=== PATIENT | female | born 1950 | race Caucasian/White ===

== ENCOUNTER 2019-05-09 08:06 | Emergency (ER) | payer MEDICARE ==
[~2019-05-09] VITALS: Ht 160 cm; Wt 113.0 kg
--- NOTE | 2019-05-09 08:53 | PHYS DOC ---
Past Medical History Past Medical History: Asthma, COPD, High Cholesterol, Hypertension Past Surgical History: Appendectomy, Cholecystectomy, Tubal ligation Alcohol Use: Rarely Drug Use: None Adult General Chief Complaint Chief Complaint: FLANK PAIN HPI HPI Patient is a 68 year old female who presents to the emergency Department today with complaints of right flank pain for the last 2 days. In addition, patient complains of nausea, vomiting, and diarrhea with the pain. Patient states that earlier today she had 4 episodes of diarrhea, she denies any blood in her stools. Patient also denies any fever, shortness of breath, cough, dysuria, increased urinary frequency, hematuria, or recent constipation. She currently rates the pain a 10 out of 10 on the pain scale, there are no alleviating or exacerbating factors. Patient denies any chest pain, palpitations, syncope, or diaphoresis. She states that last week she was seen by her chiropractor several times for right low back pain, but reports that this pain is different than that pain she was experiencing. Review of Systems Review of Systems Constitutional: Denies fever or chills [] Eyes: Denies change in visual acuity, redness, or eye pain [] HENT: Denies nasal congestion or sore throat [] Respiratory: Denies cough or shortness of breath [] Cardiovascular: No additional information not addressed in HPI [] GI: see history of present illness : Denies dysuria or hematuria [] Musculoskeletal: see history of present illness Integument: Denies rash or skin lesions [] Neurologic: Denies headache, focal weakness or sensory changes [] Endocrine: Denies polyuria or polydipsia [] Complete systems were reviewed and found to be within normal limits, except as documented in this note. Current Medications Current Medications Current Medications Medications (Trade) Dose Ordered Sig/[facility] Start Time Stop Time Status Last Admin Dose Admin Fentanyl Citrate (Fentanyl 2ml Vial) 50 mcg 1X ONCE 05/09/19 09:00 05/09/19 09:01 DC 05/09/19 09:01 50 MCG Info (CONTRAST GIVEN -- Rx MONITORING) 1 each PRN DAILY PRN 05/09/19 10:30 05/09/19 14:02 DC Iohexol (Omnipaque 300 Mg/ml) 60 ml 1X ONCE 05/09/19 10:30 05/09/19 10:31 DC 05/09/19 11:10 60 ML Morphine Sulfate (Morphine Sulfate) 4 mg 1X ONCE 05/09/19 10:30 05/09/19 10:31 DC 05/09/19 10:31 4 MG Ondansetron HCl (Zofran) 4 mg 1X ONCE 05/09/19 14:00 05/09/19 14:01 DC 05/09/19 13:35 4 MG Orphenadrine Citrate (Norflex) 60 mg 1X ONCE 05/09/19 12:30 05/09/19 12:31 DC 05/09/19 12:28 60 MG Sodium Chloride 1,000 ml @ 1,000 mls/hr 1X ONCE 05/09/19 09:00 05/09/19 09:59 DC 05/09/19 09:00 1,000 MLS/HR Allergies Allergies Allergies Coded Allergies Type Severity Reaction Last Updated Verified No Known Drug Allergies 05/09/19 No Physical Exam Physical Exam Constitutional: Well developed, well nourished, no acute distress, non-toxic appearance obese. [] HENT: Normocephalic, atraumatic, bilateral external ears normal, nose normal. [] Eyes: onjunctiva normal, no discharge. [] Neck: Normal range of motion, no stridor. [] Cardiovascular:Heart rate tachycardic rhythm, no murmur [] Lungs & Thorax: Bilateral breath sounds clear to auscultation [] Abdomen: Bowel sounds normal, soft, suprapubic tenderness, no guarding, no rebound tenderness, no masses, no pulsatile masses. [] Skin: Warm, dry, no erythema, no rash. [] Back: No CVA tenderness; right lumbar paraspinal tenderness to palpation[] Extremities: No cyanosis, ROM intact, Neurologic: Alert and oriented X 3, no focal deficits noted. [] Psychologic: Affect normal, judgement normal, mood normal. [] Current Patient Data Vital Signs Vital Signs Date Time Temp Pulse Resp B/P (MAP) Pulse Ox O2 Delivery O2 Flow Rate FiO2 05/09/19 13:45 84 185/70 (108) 97 Room Air 05/09/19 11:01 17 2.0 05/09/19 08:06 97.8 97.8 Lab Values Laboratory Tests Test 05/09/19 08:36 05/09/19 10:07 White Blood Count 11.1 x10^3/uL (4.0-11.0) H Red Blood Count 4.60 x10^6/uL (3.50-5.40) Hemoglobin 14.1 g/dL (12.0-15.5) Hematocrit 41.8 % (36.0-47.0) Mean Corpuscular Volume 91 fL (79-100) Mean Corpuscular Hemoglobin 31 pg (25-35) Mean Corpuscular Hemoglobin Concent 34 g/dL (31-37) Red Cell Distribution Width 13.7 % (11.5-14.5) Platelet Count 320 x10^3/uL (140-400) Neutrophils (%) (Auto) 79 % (31-73) H Lymphocytes (%) (Auto) 15 % (24-48) L Monocytes (%) (Auto) 5 % (0-9) Eosinophils (%) (Auto) 1 % (0-3) Basophils (%) (Auto) 2 % (0-3) Neutrophils # (Auto) 8.7 x10^3/uL (1.8-7.7) H Lymphocytes # (Auto) 1.6 x10^3/uL (1.0-4.8) Monocytes # (Auto) 0.5 x10^3/uL (0.0-1.1) Eosinophils # (Auto) 0.1 x10^3/uL (0.0-0.7) Basophils # (Auto) 0.2 x10^3/uL (0.0-0.2) Sodium Level 138 mmol/L (136-145) Potassium Level 4.1 mmol/L (3.5-5.1) Chloride Level 99 mmol/L (98-107) Carbon Dioxide Level 26 mmol/L (21-32) Anion Gap 13 (6-14) Blood Urea Nitrogen 13 mg/dL (7-20) Creatinine 1.1 mg/dL (0.6-1.0) H Estimated GFR (Cockcroft-Gault) 49.5 BUN/Creatinine Ratio 12 (6-20) Glucose Level 137 mg/dL (70-99) H Calcium Level 9.4 mg/dL (8.5-10.1) Magnesium Level 1.4 mg/dL (1.8-2.4) L Total Bilirubin 0.9 mg/dL (0.2-1.0) Aspartate Amino Transferase (AST) 19 U/L (15-37) Alanine Aminotransferase (ALT) 14 U/L (14-59) Alkaline Phosphatase 63 U/L (46-116) Total Protein 8.4 g/dL (6.4-8.2) H Albumin 3.6 g/dL (3.4-5.0) Albumin/Globulin Ratio 0.8 (1.0-1.7) L Urine Collection Type Unknown Urine Color Yellow Urine Clarity Hazy Urine pH 5.5 Urine Specific Emily 1.020 Urine Protein Trace mg/dL (NEG-TRACE) Urine Glucose (UA) Negative mg/dL (NEG) Urine Ketones (Stick) Negative mg/dL (NEG) Urine Blood Trace (NEG) Urine Nitrite Negative (NEG) Urine Bilirubin Negative (NEG) Urine Urobilinogen Dipstick 0.2 mg/dL (0.2 mg/dL) Urine Leukocyte Esterase Moderate (NEG) Urine RBC 1-2 /HPF (0-2) Urine WBC 1-4 /HPF (0-4) Urine Bacteria 0 /HPF (0-FEW) Laboratory Tests 05/09/19 08:36 Laboratory Tests 05/09/19 08:36 EKG EKG 0852- sinus rhythm rate of 96, no abnormalities, no STEMI read by Dr. Johnson[] Radiology/Procedures Radiology/Procedures PROCEDURE: CT ABD PELV W/ IV CONTRST ONLY PQRS Compliance Statement: One or more of the following individualized dose reduction techniques were utilized for this examination: 1. Automated exposure control 2. Adjustment of the mA and/or kV according to patient size 3. Use of iterative reconstruction technique CT abdomen/pelvis with contrast 05/09/2019 10:08 AM INDICATION: Abdominal pain with nausea, vomiting and diarrhea COMPARISON: CT abdomen/pelvis October 21, 2011 TECHNIQUE: Multiple axial CT images of the abdomen and pelvis were obtained after the intravenous administration of 60 mL Omnipaque 300. Coronal and sagittal reformats are provided. FINDINGS: Lung bases are clear. Heart size is within normal limits. Mild hypoattenuation of the hepatic parenchyma suggestive of hepatic steatosis. Spleen, bilateral adrenal glands, and pancreas are normal in appearance. Gallbladder is surgically absent. No intrahepatic or extrahepatic biliary ductal dilatation. Abdominal aorta is normal in course and caliber. There are no pathologically enlarged lymph nodes in abdomen and pelvis. There is no free fluid or free intraperitoneal air. There is an umbilical hernia containing nondilated loop of small bowel in measuring approximately 3.4 cm. There is mild colonic diverticulosis. Under distention of the colon and lack of oral contrast limits evaluation. Appendix is not definitively visualized and may be surgically absent. Small and large bowel loops are normal in caliber. No evidence for bowel obstruction or inflammation. The kidneys enhance symmetrically. There is no suspicious renal mass. There is no hydronephrosis. There are no suspected calculi within the kidneys, ureters or urinary bladder. Urinary bladder is within normal limits given degree of distention. Uterus and adnexa appear normal by CT. No suspicious osseous abnormality is identified. IMPRESSION: 1. No evidence for bowel obstruction or inflammation. 2. Umbilical hernia containing nondilated loops of small bowel. 3. Mild colonic diverticulosis. 4. Mild hepatic steatosis. [] Course & Med Decision Making Course & Med Decision Making Pertinent Labs and Imaging studies reviewed. (See chart for details) dx: R low back pain, lower abdominal pain, nausea, UTI ddx: kidney stone, pyelonephritis, diverticulitis, colitis, bowel obstruction WBC 11.1, CBC otherwise unremarkable, CMP [employer] 1.1 glucose 137, mg 1.4, UA moderate leuk kya, 1-[address] ABD/Pel: 1. No evidence for bowel obstruction or inflammation. 2. Umbilical hernia containing nondilated loops of small bowel. 3. Mild colonic diverticulosis. 4. Mild hepatic steatosis. Pt given 2 doses of 4 mg of zofran, 1L NS, 50 mcg of fentanyl, 4 mg of morphine, and 60 mg of norflex IV. PT reports some pain relief but states that pain is not gone. Advised pt that there is no acute findings today and offered to admit for pain control. Pt states she would like to go home. Prescriptions written for norflex, keflex, and zofran. Follow up with PCP if sx persist, return to ER if sx worsen Patient verbalized an understanding of home care, medications, follow-up, and return to ED instructions and was in agreement with the plan of care. [] Dragon Disclaimer Dragon Disclaimer This electronic medical record was generated, in whole or in part, using a voice recognition dictation system. Departure Departure Impression: Primary Impression: Right low back pain Additional Impressions: Lower abdominal pain Nausea UTI (urinary tract infection) Disposition: HOME, SELF-CARE Condition: STABLE Referrals: NO PCP (PCP) Patient Instructions: Abdominal Pain (Nonspecific), Back Pain, Adult, [id number]-[id number], Nausea, Adult, [id number] Additional Instructions: Fill the prescription and use as directed. Diet as tolerated. Follow up with your primary care doctor if symptoms persist, return to the ER if symptoms worsen. Scripts Cephalexin (KEFLEX) 500 Mg Capsule 1 CAP PO BID, #14 CAP Prov: ROBERT CAMPOS APRN 05/09/19 Ondansetron (ONDANSETRON ODT) 4 Mg Tab.rapdis 1 TAB PO PRN Q6-8HRS PRN for NAUSEA, #16 TAB 0 Refills Prov: ROBERT CAMPOS APRN 05/09/19 Orphenadrine Citrate (ORPHENADRINE CITRATE) 100 Mg Tablet.er 1 TAB PO BID PRN for PAIN for 5 Days, #10 TAB 0 Refills Prov: ROBERT CAMPOS APRN 05/09/19 Problem Qualifiers Primary Impression: Right low back pain Chronicity: acute Sciatica presence: without sciatica Qualified Codes: M54.5 - Low back pain Additional Impressions: UTI (urinary tract infection) Urinary tract infection type: site unspecified Hematuria presence: with hematuria Qualified Codes: N39.0 - Urinary tract infection, site not specified; R31.9 - Hematuria, unspecified ROBERT CAMPOS PROMOTION MANAGER May 09, 2019 08:53
[2019-05-09 08:55] LABS: BASO # 0.2 x10^3/uL (0.0-0.2); BASO % 2 % (0-3); EOS # 0.1 x10^3/uL (0.0-0.7); EOS % 1 % (0-3); HEMATOCRIT 41.8 % (36.0-47.0); HEMOGLOBIN 14.1 g/dL (12.0-15.5); LYMPH # 1.6 x10^3/uL (1.0-4.8); LYMPH % 15 % (24-48); MEAN CORPUSCULAR HEMOGLOBIN 31 pg (25-35); MEAN CORPUSCULAR HGB CONC 34 g/dL (31-37); MEAN CORPUSCULAR VOLUME 91 fL (79-100); MONO # 0.5 x10^3/uL (0.0-1.1); MONO % 5 % (0-9); NEUT # 8.7 x10^3/uL (1.8-7.7); NEUT % 79 % (31-73); PLATELET COUNT 320 x10^3/uL (140-400); RED CELL DISTRIBUTION WIDTH 13.7 % (11.5-14.5); WHITE BLOOD COUNT 11.1 x10^3/uL (4.0-11.0)
[2019-05-09] MEDS ORDERED: ONDANSETRON PF 4 MG/2 ML VIAL. IV ONE ×2 (09:00→14:00)
[2019-05-09] MEDS ORDERED: IV NORMAL SALINE 1000ML BAG 1,000 ML IV ONE (09:00)
[2019-05-09] MEDS ORDERED: fentaNYL PF VIAL 100 MCG/2 ML VIAL IV ONE (09:00)
[2019-05-09 09:04] LABS: CALCIUM 9.4 mg/dL (8.5-10.1); CREATININE 1.1 mg/dL (0.6-1.0); GFR 49.5; POTASSIUM 4.1 mmol/L (3.5-5.1)
[2019-05-09 09:10] LABS: ALBUMIN 3.6 g/dL (3.4-5.0); ALBUMIN/GLOBULIN RATIO 0.8 (1.0-1.7); MAGNESIUM 1.4 mg/dL (1.8-2.4); TOTAL BILIRUBIN 0.9 mg/dL (0.2-1.0); TOTAL PROTEIN 8.4 g/dL (6.4-8.2)
--- NOTE | 2019-05-09 09:12 | EKG ---
[facility] [address] [place] [address] Test Date: 2019-05-09 Test Time: 08:52:04 Pat Name: DANA SIMS Department: Room: Gender: F [employer] Architect: : [id number] Requested By: ROBERT CAMPOS Order Number: [id number] Reading MD: Measurements Intervals [place] Rate: 96 P: 48 MA: 130 QRS: 24 QRSD: 74 T: 41 QT: 324 QTc: 410 Interpretive Statements SINUS RHYTHM NO SPECIFIC ECG ABNORMALITIES RI6.01 No previous ECG available for comparison
[2019-05-09] MEDS ORDERED: CONTRAST GIVEN. MC PRN (10:30)
[2019-05-09] MEDS ORDERED: MORPHINE SULFATE 4 MG/ML VIAL. IV ONE (10:30)
[2019-05-09] MEDS ORDERED: IOHEXOL 300 MG/ML 100ML VIAL. IV ONE (10:30)
[2019-05-09 10:48] LABS: CLARITY,URINE HAZY; COLOR,URINE YELLOW
[2019-05-09 10:49] LABS: BILIRUBIN,URINE NEGATIVE (NEG); NITRITE,URINE NEGATIVE (NEG); PH,URINE 5.5; PROTEIN,URINE TRACE mg/dL (NEG-TRACE); UROBILINOGEN,URINE 0.2 mg/dL (0.2 mg/dL)
[2019-05-09 11:15] LABS: BACTERIA,URINE 0 /HPF (0-FEW)
--- NOTE | 2019-05-09 11:32 | RAD ---
PQRS Compliance Statement: One or more of the following individualized dose reduction techniques were utilized for this examination: 1. Automated exposure control 2. Adjustment of the mA and/or kV according to patient size 3. Use of iterative reconstruction technique CT abdomen/pelvis with contrast 05/09/2019 10:08 AM INDICATION: Abdominal pain with nausea, vomiting and diarrhea COMPARISON: CT abdomen/pelvis October 21, 2011 TECHNIQUE: Multiple axial CT images of the abdomen and pelvis were obtained after the intravenous administration of 60 mL Omnipaque 300. Coronal and sagittal reformats are provided. FINDINGS: Lung bases are clear. Heart size is within normal limits. Mild hypoattenuation of the hepatic parenchyma suggestive of hepatic steatosis. Spleen, bilateral adrenal glands, and pancreas are normal in appearance. Gallbladder is surgically absent. No intrahepatic or extrahepatic biliary ductal dilatation. Abdominal aorta is normal in course and caliber. There are no pathologically enlarged lymph nodes in abdomen and pelvis. There is no free fluid or free intraperitoneal air. There is an umbilical hernia containing nondilated loop of small bowel in measuring approximately 3.4 cm. There is mild colonic diverticulosis. Under distention of the colon and lack of oral contrast limits evaluation. Appendix is not definitively visualized and may be surgically absent. Small and large bowel loops are normal in caliber. No evidence for bowel obstruction or inflammation. The kidneys enhance symmetrically. There is no suspicious renal mass. There is no hydronephrosis. There are no suspected calculi within the kidneys, ureters or urinary bladder. Urinary bladder is within normal limits given degree of distention. Uterus and adnexa appear normal by CT. No suspicious osseous abnormality is identified. IMPRESSION: 1. No evidence for bowel obstruction or inflammation. 2. Umbilical hernia containing nondilated loops of small bowel. 3. Mild colonic diverticulosis. 4. Mild hepatic steatosis. Electronically signed by: Tiffanie Francis MD (05/09/2019 11:29 AM) [id number]
[2019-05-09] MEDS ORDERED: ORPHENADRINE CITRATE 60 MG/2 ML VIAL. IV ONE (12:30)
[2019-05-09] MEDS ORDERED: ORPH100T PO (13:34)
[2019-05-09] MEDS ORDERED: ONDA4TAB12 PO (13:34)
[2019-05-09] MEDS ORDERED: CEPH-264 PO (13:37)
[2019-05-09 13:45] VITALS: BP 185/70
== END 2019-05-09 13:46 | disposition home or self-care (01) ==
LOC: ER 08:06
DX: N39.0 Urinary tract infection, site not specified (principal); R11.2 Nausea with vomiting, unspecified; J44.9 Chronic obstructive pulmonary disease, unspecified; E78.00 Pure hypercholesterolemia, unspecified; I10 Essential (primary) hypertension; K57.90 Diverticulosis of intestine, part unspecified, without perforation or abscess without bleeding; K42.9 Umbilical hernia without obstruction or gangrene; K76.0 Fatty (change of) liver, not elsewhere classified; Z90.89 Acquired absence of other organs; Z90.49 Acquired absence of other specified parts of digestive tract; Z98.51 Tubal ligation status
CPT/HCPCS: 36415; 74177; 80053; 81001; 83735; 85025; 93005; 96361; 96374; 96375; 96376; 99285; J2270; J2360; J2405; J3010; J7030; Q9967